=== PATIENT | female | born 1960 | race Hispanic/Latino ===

== ENCOUNTER 2020-08-09 06:31 | Inpatient (IN) | payer BC, SELFPAY ==
--- NOTE | 2020-08-09 07:17 | RAD ---
Exam: Chest one view HISTORY:Cough. Chest pain. Shortness of breath Comparison: None FINDINGS: Cardiac silhouette: Normal Aorta: Unremarkable Pulmonary vessels: Normal Costophrenic angles: Clear LUNGS: Multifocal interstitial and alveolar opacities. Pneumothorax: None Osseous abnormalities: None IMPRESSION: Multifocal interstitial and alveolar opacities. Correlate for multifocal pneumonia, inclu ding COVID pneumonia. Patients COVID status should be determined.
[2020-08-09 07:21] LABS: #Eosinphils 0.1 thou/uL (0.0-0.7); #Lymphocytes 2.3 thou/uL (1.20-3.40); #Monocytes 0.7 thou/uL (0.11-0.59); #Neutrophils 4.9 thou/uL (1.40-6.50); %Basophils 0.4 % (0.0-1.0); %Eosinophils 0.8 % (0.0-10.0); %Lymphocytes 28.8 % (21.0-51.0); %Monocytes 8.6 % (0.0-10.0); %Neutrophils 61.3 % (42.0-75.0); Hemoglobin 15.1 g/dL (12.0-16.0); Mean Corpuscular HGB CONC 31.9 g/dL (32.0-36.0); Mean Corpuscular Hemoglobin 25.9 pg (27.0-31.0); Mean Corpuscular Volume 81.4 fL (78.0-98.0); Mean Platelet Volume 9.5 fL (7.4-10.4); Platelet Count 267 thou/uL (130-400); Red Blood Cell (RBC) Count 5.81 mill/uL (4.20-5.40)
[2020-08-09] MEDS ORDERED: Dexamethasone 4 MG TAB ONE (07:26)
[2020-08-09] MEDS ORDERED: Dexamethasone 10 MG/ML VIAL ONE (07:27)
[2020-08-09 08:52] LABS: SARS-CoV-2 NAA Rapid Test DETECTED (NotDetected)
[2020-08-09 09:57] LABS: Albumin 3.5 g/dL (3.5-5.0)
[2020-08-09 09:58] LABS: Chloride 98 mmol/L (98-107); Sodium 132 mmol/L (136-145)
[2020-08-09 09:59] LABS: Calcium 8.8 mg/dL (7.8-10.44)
[2020-08-09 10:01] LABS: Bilirubin, Total 0.8 mg/dL (0.2-1.2); Carbon Dioxide 23 mmol/L (22-29); Globulin 7.4 g/dL (2.4-3.5); Protein, Total 10.9 g/dL (6.0-8.3)
[2020-08-09 10:02] LABS: Alkaline Phosphatase 91 U/L (40-110); Glucose 257 mg/dL (70-105)
[2020-08-09 10:03] LABS: Calc. Creatinine Clearance 0 mL/min (70-130)
[2020-08-09 10:04] LABS: BUN (Urea Nitrogen) 9 mg/dL (9.8-20.1)
[2020-08-09 10:05] LABS: ALT (SGPT) 52 U/L (8-55); AST (SGOT) 111 U/L (5-34)
[2020-08-09] MEDS ORDERED: Acetaminophen 325 MG TAB PO PRN (10:05)
[2020-08-09] MEDS ORDERED: Senokot S 8.6-50 MG TAB PO PRN (10:05)
[2020-08-09] MEDS ORDERED: Ondansetron ODT 4 MG TAB PO PRN (10:05)
[2020-08-09] MEDS ORDERED: HYDROcodone/Acetaminophen 5/325 mg Tablet PO PRN (10:05)
[2020-08-09] MEDS ORDERED: Melatonin 3 MG TAB PO PRN (10:07)
[2020-08-09] MEDS ORDERED: Promethazine 25 MG TAB PO PRN (10:10)
[2020-08-09 10:11] LABS: Potassium 4.2 mmol/L (3.5-5.1)
[2020-08-09 10:13] LABS: Anion Gap 15 mmol/L (10-20)
[2020-08-09] MEDS ORDERED: Albuterol 200 PUFF (6.7GM INHALER) INH PRN (10:15)
[2020-08-09 11:18] VITALS: BMI 52.9
[2020-08-09] MEDS ORDERED: FLU VACC QS2020-21(6MOS UP)/PF 60 MCG/0.5 ML SYRINGE IM ONE (12:00)
[2020-08-09] MEDS ORDERED: Dextrose 5% in Water 1,000 ML IV PRN (13:44)
[2020-08-09] MEDS ORDERED: Dextrose 50% Abboject 50 ML SYRINGE SLOW IVP PRN (13:44)
[2020-08-09] MEDS: cefTRIAXone\\ROCEPHIN 1 GM in Sodium Chloride 0.9% 100 ML IVPB SCH (14:30)
--- NOTE | 2020-08-09 14:34 | HP ---
CHIEF COMPLAINT: Shortness of breath and productive cough. HISTORY OF PRESENT ILLNESS: A 59-year-old female with significant past medical history, presented with generalized body ache, cough, diarrhea, and subjective fever. Symptoms started a week ago, but also experienced chest pressure last night that required her to come to the ER. One of the family member, her daughter tested positive for COVID two weeks ago. She was saturating mid 80s before arrival with 2 L oxygen. Her sats improved to mid 90s and she is not in any acute distress. She is afebrile. She has white count of 8.0 and COVID positive. Her creatinine is 0.74, blood glucose 257. REVIEW OF SYSTEMS: A 13-point review of systems reviewed with the patient. Pertinent addressed in the history of present illness. Rest are negative including she did not have any headache, blurriness, tingling, numbness in her extremities. She is nauseated, but no emesis. No blood in the urine or stool. No dysuria. No rash in the body. Denies any sensory changes and vision changes. PAST MEDICAL HISTORY: Hypertension. SURGICAL HISTORY: None. SOCIAL HISTORY: The patient lives with the daughter. She does not drink or smoke. No smoking or alcohol use. CURRENT MEDICATIONS: None. ALLERGIES: NONE. PHYSICAL EXAMINATION: VITAL SIGNS: Temperature is 100.4, pulse 118, blood pressure 184/91. GENERAL: She is alert and oriented x3. Nontoxic looking. HEENT: Pupils are equal, round, and reactive to light. Anicteric. Mucous membranes moist. HEART: Tachycardia without murmurs. LUNGS: Clear to auscultation. ABDOMEN: Protuberant, but soft and bowel sounds positive. EXTREMITIES: Without any pitting edema. She is overall obese. IMAGING DATA: Chest x-ray shows some multifocal infiltrate and alveolar opacities. LABORATORY DATA: No elevated white count. Her chemistry 132, creatinine 0.74. AST is 111. Rest of the CMP panel in the normal range. COVID negative. IMPRESSION AND PLAN: This is a 59-year-old obese female with, 1. History of hypertension, presenting with COVID pneumonia. 2. Acute hypoxic respiratory failure. 3. Hypertension. 4. Mild hyponatremia. The patient is admitted for COVID management. Decadron, vitamin C, as well as zinc. Given her temp of 100.4, I will also start her on empiric antibiotics. Lovenox b.i.d. dose. Job ID: [id number]
[2020-08-09] MEDS: Cholecalciferol 1,000 UNITS (25 MCG) TAB PO SCH (20:19)
[2020-08-09] MEDS: Enoxaparin Sodium 40 MG/0.4 ML SYRINGE SC SCH (20:19)
[2020-08-10 06:47] LABS: Hemoglobin 13.6 g/dL (12.0-16.0); Mean Corpuscular HGB CONC 31.4 g/dL (32.0-36.0); Mean Corpuscular Hemoglobin 25.3 pg (27.0-31.0); Mean Corpuscular Volume 80.6 fL (78.0-98.0); Mean Platelet Volume 8.9 fL (7.4-10.4); Platelet Count 290 thou/uL (130-400); RBC Distribution Width 13.7 % (11.5-14.5); Red Blood Cell (RBC) Count 5.35 mill/uL (4.20-5.40); White Blood Cell (WBC) Count 8.9 thou/uL (4.8-10.8)
[2020-08-10 07:01] LABS: ALT (SGPT) 43 U/L (8-55); AST (SGOT) 50 U/L (5-34); Albumin 3.6 g/dL (3.5-5.0); Alkaline Phosphatase 95 U/L (40-110); Anion Gap 18 mmol/L (10-20); BUN (Urea Nitrogen) 10 mg/dL (9.8-20.1); Bilirubin, Total 0.9 mg/dL (0.2-1.2); Calc. Creatinine Clearance 183 mL/min (70-130); Carbon Dioxide 24 mmol/L (22-29); Chloride 100 mmol/L (98-107); Globulin 4.6 g/dL (2.4-3.5); Glucose 194 mg/dL (70-105); Protein, Total 8.2 g/dL (6.0-8.3); Sodium 139 mmol/L (136-145)
[2020-08-10 07:05] LABS: Potassium 2.8 mmol/L (3.5-5.1)
[2020-08-10] MEDS: Dexamethasone 4 MG TAB PO SCH (08:07)
[2020-08-10] MEDS: Potassium Chloride 20 MEQ TAB PO SCH ×3 (08:08→21:26)
[2020-08-10] MEDS ORDERED: Azithromycin 250 MG TAB PO SCH (09:00)
[2020-08-10] MEDS: Enoxaparin Sodium 40 MG/0.4 ML SYRINGE SC SCH ×2 (09:09→21:26)
[2020-08-10] MEDS: Zinc Sulfate 220 MG CAP PO SCH (09:09)
[2020-08-10] MEDS: Ascorbic Acid 500 mg Chewable Tablet PO SCH (09:09)
[2020-08-10 09:33] LABS: Band 2 % (5-11); Lymphocytes 42 % (21-51); MDiff Complete? YES; Monocytes 3 % (0-10); Myelocyte 1 % (0-0); Neutrophil 50 % (42-75); Platelet Morphology Comment Appears Adequate; RBC Morphology Normal; Reactive Lymphocytes 2 % (0-10)
[2020-08-10] MEDS: cefTRIAXone\\ROCEPHIN 1 GM in Sodium Chloride 0.9% 100 ML IVPB SCH (13:15)
--- NOTE | 2020-08-10 15:11 | PDOC.HOSPP ---
- Subjective Encounter Date: 08/10/20 Encounter Time: 09:15 Subjective: no diarrhea now, had it for 2 days got resolved yesterday symptoms started last friday with uri issues then cough, sob from yesterday - Objective Vital Signs & Weight: Vital Signs (12 hours) Temp Pulse Resp BP Pulse Ox 08/10/20 11:53 98.1 F 79 20 132/79 98 08/10/20 07:46 98.3 F 91 20 144/83 H 92 L 08/10/20 04:59 97.8 F 87 18 152/87 H 91 L Weight Weight 280 lb I&O: 08/09/20 08/10/20 08/11/20 06:59 06:59 06:59 Intake Total 1480 Balance 1480 Result Diagrams: 08/10/20 06:31 08/10/20 06:31 Hospitalist ROS - Medication Medications: Active Medications Generic Name Dose Route Start Last Admin Trade Name Freq PRN Reason Stop Dose Admin Ascorbic Acid 1,000 mg 08/10/20 09:00 08/10/20 09:09 Ascorbic Acid 500 Mg Chewable Tablet PO 1,000 mg DAILY RAMILA Administration Azithromycin 500 mg 08/10/20 09:00 08/10/20 09:08 Azithromycin 250 Mg Tab PO 500 mg DAILY RAMILA Administration Cholecalciferol 1,000 units 08/09/20 21:00 08/09/20 20:19 Cholecalciferol 1,000 Units (25 Mcg) Tab PO 1,000 units HS RAMILA Administration Dexamethasone 6 mg 08/10/20 08:00 08/10/20 08:07 Dexamethasone 4 Mg Tab PO 6 mg QAM-WM RAMILA Administration Enoxaparin Sodium 40 mg 08/09/20 21:00 08/10/20 09:09 Enoxaparin Sodium 40 Mg/0.4 Ml Syringe SC 40 mg BID RAMILA Administration Ceftriaxone Sodium 1 gm/ 100 mls @ 200 mls/hr 08/09/20 14:00 08/10/20 13:15 Sodium Chloride IVPB 100 mls 1400 RAMILA Administration Potassium Chloride 40 meq 08/10/20 08:00 08/10/20 13:15 Potassium Chloride 20 Meq Tab PO 08/11/20 02:01 40 meq Q6H RAMILA Administration Zinc Sulfate 220 mg 08/10/20 09:00 08/10/20 09:09 Zinc Sulfate 220 Mg Cap PO 220 mg DAILY RAMILA Administration - Exam General Appearance: awake alert Eye: PERRL, anicteric sclera ENT: no oropharyngeal lesions, moist mucosa Neck: supple, no JVD Heart: RRR, no murmur Respiratory: no wheezes, no rales, rhonchi Gastrointestinal: soft, non-tender, non-distended, normal bowel sounds Extremities: no cyanosis, no edema Neurological: cranial nerve grossly intact, no focal deficits Psychiatric: normal affect, A&O x 3 Hosp A/P (1) Pneumonia due to COVID-19 virus Code(s): U07.1 - COVID-19; J12.82 - PNEUMONIA DUE TO CORONAVIRUS DISEASE 2019 Status: Acute (2) Acute respiratory failure with hypoxia Code(s): J96.01 - ACUTE RESPIRATORY FAILURE WITH HYPOXIA Status: Acute (3) Morbid obesity with BMI of 50.0-59.9, adult Code(s): E66.01 - MORBID (SEVERE) OBESITY DUE TO EXCESS CALORIES; Z68.43 - BODY MASS INDEX [BMI] 50.0-59.9, ADULT Status: Chronic (4) DM type 2 (diabetes mellitus, type 2) Status: Chronic Qualifiers: Diabetes mellitus fpc insulin use: without fpc use (5) Hypokalemia Code(s): E87.6 - HYPOKALEMIA Status: Acute - Plan replace K, bmp at 4 pm and in am d/w , is approved for remdesivir, spoke to Patricia in pharmacy continue dexamethasone, alb, dulera inh, will start lantus for dm to ambulate as tolerated in room is on nasal canula 2 lts hemostable offered to call and update family she prefers not to.
[2020-08-10] MEDS ORDERED: REMDESIVIR (EUA) 200 MG in Sodium Chloride 0.9% 250 ML 210 ML IV SCH (15:45)
[2020-08-10 16:29] LABS: Anion Gap 14 mmol/L (10-20); BUN (Urea Nitrogen) 9 mg/dL (9.8-20.1); Calc. Creatinine Clearance 164 mL/min (70-130); Calcium 9.1 mg/dL (7.8-10.44); Carbon Dioxide 26 mmol/L (22-29); Chloride 98 mmol/L (98-107); Glucose 302 mg/dL (70-105); Potassium 3.9 mmol/L (3.5-5.1); Sodium 134 mmol/L (136-145)
[2020-08-10] MEDS ORDERED: Lisinopril/Hydrochlorothiazide 10 mg/12.5 mg Tablet PO SCH (18:45)
[2020-08-10] MEDS ORDERED: NIFEdipine XL 30 MG TAB PO SCH (18:45)
[2020-08-10] MEDS ORDERED: Insulin Glargine 10 UNITS in Pre-Filled Syringe 1 EACH SC SCH (21:00)
[2020-08-10] MEDS: Cholecalciferol 1,000 UNITS (25 MCG) TAB PO SCH (21:26)
[2020-08-10] MEDS: Insulin Glargine 20 UNITS in Pre-Filled Syringe SC SCH (21:26)
[2020-08-10] MEDS: HumaLOG 300 UNITS/3 ML VIAL SC PRN (21:27)
[2020-08-10] MEDS: hydrALAZINE 20 MG/ML VIAL SLOW IVP PRN (21:46)
[2020-08-11] MEDS: Potassium Chloride 20 MEQ TAB PO SCH (03:00)
[2020-08-11 06:56] LABS: ALT (SGPT) 41 U/L (8-55); AST (SGOT) 34 U/L (5-34); Albumin 3.4 g/dL (3.5-5.0); Alkaline Phosphatase 89 U/L (40-110); Bilirubin, Direct 0.4 mg/dL (0.1-0.3); Bilirubin, Total 0.8 mg/dL (0.2-1.2); Protein, Total 8.2 g/dL (6.0-8.3)
[2020-08-11 06:58] LABS: Anion Gap 20 mmol/L (10-20); Carbon Dioxide 18 mmol/L (22-29); Chloride 105 mmol/L (98-107); Potassium 3.8 mmol/L (3.5-5.1); Sodium 139 mmol/L (136-145)
[2020-08-11 07:06] LABS: BUN (Urea Nitrogen) 10 mg/dL (9.8-20.1); Calc. Creatinine Clearance 201 mL/min (70-130)
[2020-08-11 07:07] LABS: Glucose 154 mg/dL (70-105)
[2020-08-11] MEDS: Albuterol 200 PUFF (6.7GM INHALER) INH SCH ×3 (07:07→17:25)
[2020-08-11] MEDS: Dexamethasone 4 MG TAB PO SCH (08:07)
[2020-08-11] MEDS: Ascorbic Acid 500 mg Chewable Tablet PO SCH (08:07)
[2020-08-11] MEDS: Enoxaparin Sodium 40 MG/0.4 ML SYRINGE SC SCH ×2 (08:08→20:55)
[2020-08-11] MEDS: NIFEdipine XL 60 MG TAB PO SCH (08:09)
[2020-08-11] MEDS: Zinc Sulfate 220 MG CAP PO SCH (08:09)
[2020-08-11] MEDS: Lisinopril/Hydrochlorothiazide 20/25 mg Tablet PO SCH (08:10)
[2020-08-11] MEDS: Insulin Glargine 20 UNITS in Pre-Filled Syringe SC SCH ×2 (08:57→20:55)
[2020-08-11] MEDS: HumaLOG 300 UNITS/3 ML VIAL SC PRN ×2 (13:15→17:25)
--- NOTE | 2020-08-11 15:10 | PDOC.HOSPP ---
- Subjective Encounter Date: 08/11/20 Encounter Time: 09:00 Subjective: is doing well on nasal canula, currently sitting in chair. is amb in room - Objective Vital Signs & Weight: Vital Signs (12 hours) Temp Pulse Resp BP BP Pulse Ox 08/11/20 08:10 79 08/11/20 08:09 79 130/78 08/11/20 07:59 97.9 F 79 20 162/86 H 95 08/11/20 07:06 87 08/11/20 04:56 97.5 F L 87 18 135/73 95 Weight Weight 280 lb I&O: 08/10/20 08/11/20 08/12/20 06:59 06:59 06:59 Intake Total 1480 1930 Balance 1480 1930 Result Diagrams: 08/10/20 06:31 08/11/20 06:03 Additional Labs: Accuchecks 08/11/20 08/11/20 08/10/20 12:03 04:28 19:48 POC Glucose 217 H 139 H 249 H Hospitalist ROS - Medication Medications: Active Medications Generic Name Dose Route Start Last Admin Trade Name Freq PRN Reason Stop Dose Admin Albuterol Sulfate 3 puff 08/10/20 19:00 08/11/20 13:16 Albuterol 200 Puff (6.7gm Inhaler) INH 3 inh [id number] RAMILA Administration Ascorbic Acid 1,000 mg 08/10/20 09:00 08/11/20 08:07 Ascorbic Acid 500 Mg Chewable Tablet PO 1,000 mg DAILY RAMILA Administration Cholecalciferol 1,000 units 08/09/20 21:00 08/10/20 21:26 Cholecalciferol 1,000 Units (25 Mcg) Tab PO 1,000 units HS RAMILA Administration Dexamethasone 6 mg 08/10/20 08:00 08/11/20 08:07 Dexamethasone 4 Mg Tab PO 6 mg QAM-WM RAMILA Administration Enoxaparin Sodium 40 mg 08/09/20 21:00 08/11/20 08:08 Enoxaparin Sodium 40 Mg/0.4 Ml Syringe SC 40 mg BID RAMILA Administration Lisinopril/HCTZ 1 tab 08/11/20 09:00 08/11/20 08:10 Lisinopril/Hydrochlorothiazide 20/25 Mg Tablet PO 1 tab DAILY RAMILA Administration Hydralazine HCl 10 mg 08/10/20 21:29 08/10/20 21:46 Hydralazine 20 Mg/Ml Vial SLOW IVP 10 mg Q4H PRN Administration SBP > 180 or DBP > 105 Insulin Glargine 20 units/ 0.2 mls @ 0 mls/hr 08/10/20 21:00 08/11/20 08:57 Miscellaneous Medication SC 0.2 mls BID RAMILA Administration Insulin Human Lispro 0 units 08/09/20 13:44 08/11/20 13:15 Humalog 300 Units/3 Ml Vial SC 4 unit .MODERATE SLIDING SC PRN Administration Moderate Correctional Scale Nifedipine 60 mg 08/11/20 09:00 08/11/20 08:09 Nifedipine Xl 60 Mg Tab PO 60 mg DAILY RAMILA Administration Pantoprazole Sodium 40 mg 08/11/20 09:00 08/11/20 08:09 Pantoprazole 40 Mg Tab PO 40 mg DAILY RAMILA Administration Zinc Sulfate 220 mg 08/10/20 09:00 08/11/20 08:09 Zinc Sulfate 220 Mg Cap PO 220 mg DAILY RAMILA Administration - Exam General Appearance: awake alert Eye: PERRL, anicteric sclera ENT: no oropharyngeal lesions, moist mucosa Neck: supple, no JVD Heart: RRR, no murmur Respiratory: no wheezes, rales, rhonchi Gastrointestinal: soft, non-tender, non-distended, normal bowel sounds Extremities: no cyanosis, no edema Neurological: cranial nerve grossly intact, no focal deficits Psychiatric: normal affect, A&O x 3 Hosp A/P (1) Pneumonia due to COVID-19 virus Code(s): U07.1 - COVID-19; J12.82 - PNEUMONIA DUE TO CORONAVIRUS DISEASE 2019 Status: Acute (2) Acute respiratory failure with hypoxia Code(s): J96.01 - ACUTE RESPIRATORY FAILURE WITH HYPOXIA Status: Acute (3) Morbid obesity with BMI of 50.0-59.9, adult Code(s): E66.01 - MORBID (SEVERE) OBESITY DUE TO EXCESS CALORIES; Z68.43 - BODY MASS INDEX [BMI] 50.0-59.9, ADULT Status: Chronic (4) DM type 2 (diabetes mellitus, type 2) Status: Chronic Qualifiers: Diabetes mellitus termite exterminator insulin use: without termite exterminator use (5) Hypokalemia Code(s): E87.6 - HYPOKALEMIA Status: Resolved (6) HTN (hypertension) Code(s): I10 - ESSENTIAL (PRIMARY) HYPERTENSION Status: Chronic Qualifiers: Hypertension type: essential hypertension Qualified Code(s): I10 - Ess ential (primary) hypertension - Plan continue dexamethasone, alb, dulera inh, remdesivir, lantus for dm, prinizide and procardia xl for htn was not on any meds for htn and dm previously to ambulate as tolerated in room is on nasal canula 2 lts hemostable offered to call and update family she prefers not to. dc plan when remdesivir course is done and will likely need home O2 2 lts.
--- NOTE | 2020-08-11 16:32 | CON ---
DATE OF CONSULTATION: 08/11/2020 REASON FOR CONSULTATION: COVID-19. HISTORY OF PRESENT ILLNESS: A 59-year-old, looks like first admission to this hospital, with history of obesity and hypertension, who presented to the ER on 08/09, had been 7 days ill on the day of the presentation with respiratory symptoms and hypoxemia, some sore throat, nasal congestion, cough, and some headaches. No abdominal symptoms and no genitourinary symptoms. No joint symptoms or neurological issues. PAST MEDICAL HISTORY: 1. Hypertension. 2. Obesity. SOCIAL HISTORY: Retired. Lives in the area with son, but has been sick at home that she knows of. Never smoker. ALLERGIES: NONE. CURRENT MEDICATIONS: 1. Decadron. 2. Hydralazine. 3. Insulin. 4. Lisinopril. 5. Nifedipine. 6. Remdesivir. 7. Zinc. PHYSICAL EXAMINATION: VITAL SIGNS: Temperature normal, BP 130/78, heart rate 79, flow rate 2 L nasal cannula, saturating at 95. GENERAL: She appears comfortable, sitting, watching television in the chair. She is speaking in full sentences. SKIN: Normal. Peripheral IV access. Voiding in the toilet. No lymphadenopathy. HEENT: Ocular movements conjugate. Oral cavity normal. Teeth in good shape. NECK: Supple. LUNGS: With a few crackles at the bases, but not many. HEART: S1 and S2. Regular rate. No murmurs. ABDOMEN: Soft, not distended or tender. No ascites. No bladder distention. EXTREMITIES: No joint inflammatory activity. Moves extremities equally. No edema. NEUROLOGIC: Examination nonfocal. LABORATORY DATA: White cell count 8.9, hemoglobin 13.6, and platelets 290 with 50% neutrophils, 2% bands, and total lymphocyte count 2.3. D-dimer 0.6. CRP 1.37. SARS-CoV-2 RT PCR positive. Two sets of blood culture, no growth 48 hours. Chest x-ray with bilateral infiltrates, I would say moderate to severe. ASSESSMENT AND DISCUSSION: 1. Obesity. 2. Hypertension. 3. [id number] COVID-19. Continue Decadron and remdesivir. Monitor markers every other day. I think she is going to do well. She did not have a lot of inflammatory activity going on right now, although she is early in the course of illness, so there is still space for worsening, but hopefully the interventions will help prevent that. Job ID: [id number]
[2020-08-11] MEDS: REMDESIVIR (EUA) 100 MG in Sodium Chloride 0.9% 250 ML 230 ML IV SCH (17:25)
[2020-08-11] MEDS: Cholecalciferol 1,000 UNITS (25 MCG) TAB PO SCH (20:55)
[2020-08-11] MEDS: hydrALAZINE 20 MG/ML VIAL SLOW IVP PRN (21:52)
[2020-08-12] MEDS: Albuterol 200 PUFF (6.7GM INHALER) INH SCH ×4 (01:51→21:14)
[2020-08-12 07:29] LABS: ALT (SGPT) 43 U/L (8-55); AST (SGOT) 32 U/L (5-34); Albumin 3.8 g/dL (3.5-5.0); Alkaline Phosphatase 91 U/L (40-110); Bilirubin, Direct 0.4 mg/dL (0.1-0.3); Bilirubin, Total 0.9 mg/dL (0.2-1.2); Protein, Total 8.6 g/dL (6.0-8.3)
[2020-08-12] MEDS: Dexamethasone 4 MG TAB PO SCH (08:39)
[2020-08-12] MEDS: Insulin Glargine 20 UNITS in Pre-Filled Syringe SC SCH ×2 (08:39→21:14)
[2020-08-12] MEDS: Ascorbic Acid 500 mg Chewable Tablet PO SCH (08:39)
[2020-08-12] MEDS: Enoxaparin Sodium 40 MG/0.4 ML SYRINGE SC SCH ×2 (08:39→21:13)
[2020-08-12] MEDS: Zinc Sulfate 220 MG CAP PO SCH (08:39)
[2020-08-12] MEDS: NIFEdipine XL 60 MG TAB PO SCH (08:40)
[2020-08-12] MEDS: Lisinopril/Hydrochlorothiazide 20/25 mg Tablet PO SCH (08:40)
[2020-08-12] MEDS: HumaLOG 300 UNITS/3 ML VIAL SC PRN ×2 (12:30→17:28)
--- NOTE | 2020-08-12 16:23 | PDOC.HOSPP ---
- Subjective Encounter Date: 08/12/20 Encounter Time: 16:21 Subjective: Ms. Villatoro was seen today in follow-up of COVID pneumonia with respiratory failure. She says she is feeling better. She has been in the room without oxygen. She says the cough and diarrhea which she had a few days ago has impr charbel. - Objective Vital Signs & Weight: Vital Signs (12 hours) Temp Pulse Resp BP BP Pulse Ox 08/12/20 08:40 76 144/76 H 08/12/20 08:00 97.7 F 82 20 151/78 H 99 Weight Weight 280 lb I&O: 08/11/20 08/12/20 08/13/20 06:59 06:59 06:59 Intake Total 1929 Balance 1929 Result Diagrams: 08/10/20 06:31 08/11/20 06:03 Additional Labs: Accuchecks 08/12/20 08/11/20 04:50 21:05 POC Glucose 163 H 235 H Hospitalist ROS - Medication Medications: Active Medications Generic Name Dose Route Start Last Admin Trade Name Freq PRN Reason Stop Dose Admin Albuterol Sulfate 3 puff 08/10/20 19:00 08/12/20 14:05 Albuterol 200 Puff (6.7gm Inhaler) INH 3 inh [id number] RAMILA Administration Ascorbic Acid 1,000 mg 08/10/20 09:00 08/12/20 08:39 Ascorbic Acid 500 Mg Chewable Tablet PO 1,000 mg DAILY RAMILA Administration Cholecalciferol 1,000 units 08/09/20 21:00 08/11/20 20:55 Cholecalciferol 1,000 Units (25 Mcg) Tab PO 1,000 units HS RAMILA Administration Dexamethasone 6 mg 08/10/20 08:00 08/12/20 08:39 Dexamethasone 4 Mg Tab PO 6 mg QAM-WM RAMILA Administration Enoxaparin Sodium 40 mg 08/09/20 21:00 08/12/20 08:39 Enoxaparin Sodium 40 Mg/0.4 Ml Syringe SC 40 mg BID RAMILA Administration Lisinopril/HCTZ 1 tab 08/11/20 09:00 08/12/20 08:40 Lisinopril/Hydrochlorothiazide 20/25 Mg Tablet PO 1 tab DAILY RAMILA Administration Hydralazine HCl 10 mg 08/10/20 21:29 08/11/20 21:52 Hydralazine 20 Mg/Ml Vial SLOW IVP 10 mg Q4H PRN Administration SBP > 180 or DBP > 105 Remdesivir 100 mg/ Sodium 250 mls @ 250 mls/hr 08/11/20 16:00 08/11/20 17:25 Chloride IV 08/14/20 16:59 250 mls 1600 RAMILA Administration Insulin Glargine 20 units/ 0.2 mls @ 0 mls/hr 08/10/20 21:00 08/12/20 08:39 Miscellaneous Medication SC 0.2 mls BID RAMILA Administration Insulin Human Lispro 0 units 08/09/20 13:44 08/11/20 17:25 Humalog 300 Units/3 Ml Vial SC 8 unit .MODERATE SLIDING SC PRN Administration Moderate Correctional Scale Nifedipine 60 mg 08/11/20 09:00 08/12/20 08:40 Nifedipine Xl 60 Mg Tab PO 60 mg DAILY RAMILA Administration Pantoprazole Sodium 40 mg 08/11/20 09:00 08/12/20 08:39 Pantoprazole 40 Mg Tab PO 40 mg DAILY RAMILA Administration Zinc Sulfate 220 mg 08/10/20 09:00 08/12/20 08:39 Zinc Sulfate 220 Mg Cap PO 220 mg DAILY RAMILA Administration - Exam General Appearance: NAD, awake alert Eye: PERRL, anicteric sclera ENT: normocephalic atraumatic, no oropharyngeal lesions Heart: RRR, no murmur, no gallops, no rubs, normal peripheral pulses Respiratory: no wheezes, no ronchi, rales (rales and decreased breath sounds) Gastrointestinal: soft, non-tender, non-distended, normal bowel sounds, no palpable masses Extremities: no cyanosis, no clubbing, no edema Hosp A/P (1) Acute respiratory failure with hypoxia Code(s): J96.01 - ACUTE RESPIRATORY FAILURE WITH HYPOXIA Status: Acute (2) Pneumonia due to COVID-19 virus Code(s): U07.1 - COVID-19; J12.82 - PNEUMONIA DUE TO CORONAVIRUS DISEASE 2019 Status: Acute (3) DM type 2 (diabetes mellitus, type 2) Status: Chronic Qualifiers: Diabetes mellitus intermediate teacher insulin use: without fdc use (4) HTN (hypertension) Code(s): I10 - ESSENTIAL (PRIMARY) HYPERTENSION Status: Chronic Qualifiers: Hypertension type: essential hypertension Qualified Code(s): I10 - Essential (primary) hypertension (5) Morbid obesity with BMI of 50.0-59.9, adult Code(s): E66.01 - MORBID (SEVERE) OBESITY DUE TO EXCESS CALORIES; Z68.43 - BODY MASS INDEX [BMI] 50.0-59.9, ADULT Status: Chronic - Plan * Acute respiratory failure due to COVID pneumonia- she is improving * Continue Remdesivir * HTN - blood pressure is borderline- will continue Lisinopril and HCTZ, ad Nifedipine * DM- continue Lantus and SSI * Continue Lovenox for DVT Prophylaxis
[2020-08-12] MEDS: REMDESIVIR (EUA) 100 MG in Sodium Chloride 0.9% 250 ML 230 ML IV SCH (17:27)
[2020-08-12] MEDS: Cholecalciferol 1,000 UNITS (25 MCG) TAB PO SCH (21:13)
[2020-08-13] MEDS: Albuterol 200 PUFF (6.7GM INHALER) INH SCH ×4 (02:28→18:07)
[2020-08-13 06:48] LABS: ALT (SGPT) 42 U/L (8-55); AST (SGOT) 32 U/L (5-34); Albumin 3.5 g/dL (3.5-5.0); Alkaline Phosphatase 85 U/L (40-110); Bilirubin, Direct 0.4 mg/dL (0.1-0.3); Bilirubin, Total 0.8 mg/dL (0.2-1.2); Protein, Total 7.9 g/dL (6.0-8.3)
[2020-08-13] MEDS: Insulin Glargine 20 UNITS in Pre-Filled Syringe SC SCH ×2 (08:13→20:50)
[2020-08-13] MEDS: Dexamethasone 4 MG TAB PO SCH (08:13)
[2020-08-13] MEDS: Ascorbic Acid 500 mg Chewable Tablet PO SCH (08:13)
[2020-08-13] MEDS: NIFEdipine XL 60 MG TAB PO SCH (08:13)
[2020-08-13] MEDS: Lisinopril/Hydrochlorothiazide 20/25 mg Tablet PO SCH (08:13)
[2020-08-13] MEDS: Zinc Sulfate 220 MG CAP PO SCH (08:13)
[2020-08-13] MEDS: Enoxaparin Sodium 40 MG/0.4 ML SYRINGE SC SCH ×2 (08:26→20:50)
--- NOTE | 2020-08-13 14:45 | PDOC.HOSPP ---
- Subjective Encounter Date: 08/13/20 Encounter Time: 14:43 Subjective: Ms. Villatoro was seen today in follow-up of COVID pneumonia. She does not have any complaints. She is breathing comfortably without oxygen. She denies any chest pain no diarrhea. - Objective Vital Signs & Weight: Vital Signs (12 hours) Temp Pulse Resp BP Pulse Ox 08/13/20 08:13 89 08/13/20 08:00 98.4 F 87 20 145/74 H 95 Weight Weight 280 lb Result Diagrams: 08/10/20 06:31 08/11/20 06:03 Additional Labs: Accuchecks 08/13/20 08/13/20 08/12/20 11:44 03:55 20:56 POC Glucose 181 H 172 H 260 H 08/12/20 16:27 POC Glucose 309 H Hospitalist ROS - Medication Medications: Active Medications Generic Name Dose Route Start Last Admin Trade Name Freq PRN Reason Stop Dose Admin Albuterol Sulfate 3 puff 08/10/20 19:00 08/13/20 06:12 Albuterol 200 Puff (6.7gm Inhaler) INH Not Given [id number] RAMILA Ascorbic Acid 1,000 mg 08/10/20 09:00 08/13/20 08:13 Ascorbic Acid 500 Mg Chewable Tablet PO 1,000 mg DAILY RAMILA Administration Cholecalciferol 1,000 units 08/09/20 21:00 08/12/20 21:13 Cholecalciferol 1,000 Units (25 Mcg) Tab PO 1,000 units HS RAMILA Administration Dexamethasone 6 mg 08/10/20 08:00 08/13/20 08:13 Dexamethasone 4 Mg Tab PO 6 mg QAM-WM RAMILA Administration Enoxaparin Sodium 40 mg 08/09/20 21:00 08/13/20 08:26 Enoxaparin Sodium 40 Mg/0.4 Ml Syringe SC 40 mg BID RAMILA Administration Lisinopril/HCTZ 1 tab 08/11/20 09:00 08/13/20 08:13 Lisinopril/Hydrochlorothiazide 20/25 Mg Tablet PO 1 tab DAILY RAMILA Administration Hydralazine HCl 10 mg 08/10/20 21:29 08/11/20 21:52 Hydralazine 20 Mg/Ml Vial SLOW IVP 10 mg Q4H PRN Administration SBP > 180 or DBP > 105 Remdesivir 100 mg/ Sodium 250 mls @ 250 mls/hr 08/11/20 16:00 08/12/20 17:27 Chloride IV 08/14/20 16:59 250 mls 1600 RAMILA Administration Insulin Glargine 20 units/ 0.2 mls @ 0 mls/hr 08/10/20 21:00 08/13/20 08:13 Miscellaneous Medication SC 0.2 mls BID RAMILA Administration Insulin Human Lispro 0 units 08/09/20 13:44 08/12/20 17:28 Humalog 300 Units/3 Ml Vial SC 8 unit .MODERATE SLIDING SC PRN Administration Moderate Correctional Scale Nifedipine 60 mg 08/11/20 09:00 08/13/20 08:13 Nifedipine Xl 60 Mg Tab PO 60 mg DAILY RAMILA Administration Pantoprazole Sodium 40 mg 08/11/20 09:00 08/13/20 08:13 Pantoprazole 40 Mg Tab PO 40 mg DAILY RAMILA Administration Zinc Sulfate 220 mg 08/10/20 09:00 08/13/20 08:13 Zinc Sulfate 220 Mg Cap PO 220 mg DAILY RAMILA Administration - Exam Eye: PERRL, anicteric sclera Heart: RRR, no murmur, no gallops, no rubs, normal peripheral pulses Respiratory: no wheezes, no ronchi, rales (at both bases) Gastrointestinal: soft, non-tender, non-distended, normal bowel sounds, no palpable masses, no hepatomegaly, no splenomegaly Extremities: no cyanosis (good d.p. pulses no lesions), no edema Hosp A/P (1) Acute respiratory failure with hypoxia Code(s): J96.01 - ACUTE RESPIRATORY FAILURE WITH HYPOXIA Status: Acute (2) Pneumonia due to COVID-19 virus Code(s): U07.1 - COVID-19; J12.82 - PNEUMONIA DUE TO CORONAVIRUS DISEASE 2019 Status: Acute (3) DM type 2 (diabetes mellitus, type 2) Status: Chronic Qualifiers: Diabetes mellitus emt intermediate insulin use: without care home use (4) HTN (hypertension) Code(s): I10 - ESSENTIAL (PRIMARY) HYPERTENSION Status: Chronic Qualifiers: Hypertension type: essential hypertension Qualified Code(s): I10 - Essential (primary) hypertension (5) Morbid obesity with BMI of 50.0-59.9, adult Code(s): E66.01 - MORBID (SEVERE) OBESITY DUE TO EXCESS CALORIES; Z68.43 - BODY MASS INDEX [BMI] 50.0-59.9, ADULT Status: Chronic - Plan * Acute respiratory failure due to COVID pneumonia- she is improving * Her final dose of Remdesivir is tomorrow * HTN - blood pressure is better * DM- continue Lantus and SSI * Continue Lovenox for DVT Prophylaxis * Home after final dose of Remdesivir
[2020-08-13] MEDS: HumaLOG 300 UNITS/3 ML VIAL SC PRN (18:07)
[2020-08-13] MEDS: REMDESIVIR (EUA) 100 MG in Sodium Chloride 0.9% 250 ML 230 ML IV SCH (18:17)
[2020-08-13] MEDS: Cholecalciferol 1,000 UNITS (25 MCG) TAB PO SCH (20:50)
[2020-08-14] MEDS: Albuterol 200 PUFF (6.7GM INHALER) INH SCH ×3 (01:48→11:40)
[2020-08-14 06:48] LABS: ALT (SGPT) 42 U/L (8-55); AST (SGOT) 33 U/L (5-34); Albumin 3.5 g/dL (3.5-5.0); Alkaline Phosphatase 83 U/L (40-110); Bilirubin, Direct 0.4 mg/dL (0.1-0.3); Bilirubin, Total 0.9 mg/dL (0.2-1.2); Protein, Total 7.8 g/dL (6.0-8.3)
[2020-08-14] MEDS: Enoxaparin Sodium 40 MG/0.4 ML SYRINGE SC SCH (07:50)
[2020-08-14] MEDS: NIFEdipine XL 60 MG TAB PO SCH (07:50)
[2020-08-14] MEDS: Lisinopril/Hydrochlorothiazide 20/25 mg Tablet PO SCH (07:51)
[2020-08-14] MEDS: Ascorbic Acid 500 mg Chewable Tablet PO SCH (07:51)
[2020-08-14] MEDS: Dexamethasone 4 MG TAB PO SCH (07:51)
[2020-08-14] MEDS: Zinc Sulfate 220 MG CAP PO SCH (09:50)
[2020-08-14] MEDS: Insulin Glargine 20 UNITS in Pre-Filled Syringe SC SCH (10:01)
[2020-08-14] MEDS: HumaLOG 300 UNITS/3 ML VIAL SC PRN ×2 (11:40→16:27)
[2020-08-14] MEDS: REMDESIVIR (EUA) 100 MG in Sodium Chloride 0.9% 250 ML 230 ML IV SCH (14:24)
[2020-08-14 16:40] VITALS: TEMP 98.4
--- NOTE | 2020-08-14 17:19 | PDOC.HOSPP ---
- Subjective Encounter Date: 08/14/20 Encounter Time: 17:17 Subjective: Ms. Villatoro was seen today in follow-up of COVID pneumonia. She is feeling fine. She has not required any oxygen for several days now. - Objective Vital Signs & Weight: Vital Signs (12 hours) Temp Pulse Resp BP BP Pulse Ox 08/14/20 16:00 98.4 F 64 20 166/83 H 96 08/14/20 12:07 98.1 F 64 20 174/78 H 99 08/14/20 08:05 63 18 98 08/14/20 08:00 98.0 F 60 20 172/84 H 100 Weight Weight 280 lb Result Diagrams: 08/10/20 06:31 08/11/20 06:03 Additional Labs: Accuchecks 08/14/20 08/14/20 08/13/20 16:11 11:35 20:40 POC Glucose 260 H 183 H 188 H 08/12/20 08/11/20 11:20 15:45 POC Glucose 201 H 316 H Hospitalist ROS - Medication Medications: Active Medications Generic Name Dose Route Start Last Admin Trade Name Freq PRN Reason Stop Dose Admin Albuterol Sulfate 3 puff 08/10/20 19:00 08/14/20 11:40 Albuterol 200 Puff (6.7gm Inhaler) INH 3 inh [id number] RAMILA Administration Ascorbic Acid 1,000 mg 08/10/20 09:00 08/14/20 07:51 Ascorbic Acid 500 Mg Chewable Tablet PO 1,000 mg DAILY RAMILA Administration Cholecalciferol 1,000 units 08/09/20 21:00 08/13/20 20:50 Cholecalciferol 1,000 Units (25 Mcg) Tab PO 1,000 units HS RAMILA Administration Dexamethasone 6 mg 08/10/20 08:00 08/14/20 07:51 Dexamethasone 4 Mg Tab PO 6 mg QAM-WM RAMILA Administration Enoxaparin Sodium 40 mg 08/09/20 21:00 08/14/20 07:50 Enoxaparin Sodium 40 Mg/0.4 Ml Syringe SC 40 mg BID RAMILA Administration Lisinopril/HCTZ 1 tab 08/11/20 09:00 08/14/20 07:51 Lisinopril/Hydrochlorothiazide 20/25 Mg Tablet PO 1 tab DAILY RAMILA Administration Hydralazine HCl 10 mg 08/10/20 21:29 08/11/20 21:52 Hydralazine 20 Mg/Ml Vial SLOW IVP 10 mg Q4H PRN Administration SBP > 180 or DBP > 105 Insulin Glargine 20 units/ 0.2 mls @ 0 mls/hr 08/10/20 21:00 08/14/20 10:01 Miscellaneous Medication SC 0.2 mls BID RAMILA Administration Insulin Human Lispro 0 units 08/09/20 13:44 08/14/20 16:27 Humalog 300 Units/3 Ml Vial SC 6 unit .MODERATE SLIDING SC PRN Administration Moderate Correctional Scale Nifedipine 60 mg 08/11/20 09:00 08/14/20 07:50 Nifedipine Xl 60 Mg Tab PO 60 mg DAILY RAMILA Administration Pantoprazole Sodium 40 mg 08/11/20 09:00 08/14/20 07:51 Pantoprazole 40 Mg Tab PO 40 mg DAILY RAMILA Administration Zinc Sulfate 220 mg 08/10/20 09:00 08/14/20 09:50 Zinc Sulfate 220 Mg Cap PO Not Given DAILY RAMILA - Exam Eye: PERRL Heart: RRR, no murmur, no gallops, no rubs, normal peripheral pulses Respiratory: no wheezes, no ronchi, rales (at both bases) Gastrointestinal: soft, non-tender, non-distended, normal bowel sounds, no palpable masses, no hepatomegaly Extremities: no cyanosis, no edema (good distal pulses bilaterally) Hosp A/P (1) Acute respiratory failure with hypoxia Code(s): J96.01 - ACUTE RESPIRATORY FAILURE WITH HYPOXIA Status: Acute (2) Pneumonia due to COVID-19 virus Code(s): U07.1 - COVID-19; J12.82 - PNEUMONIA DUE TO CORONAVIRUS DISEASE 2019 Status: Acute (3) DM type 2 (diabetes mellitus, type 2) Status: Chronic Qualifiers: Diabetes mellitus exterminator insulin use: without skilled nursing use (4) HTN (hypertension) Code(s): I10 - ESSENTIAL (PRIMARY) HYPERTENSION Status: Chronic Qualifiers: Hypertension type: essential hypertension Qualified Code(s): I10 - Essentia l (primary) hypertension (5) Morbid obesity with BMI of 50.0-59.9, adult Code(s): E66.01 - MORBID (SEVERE) OBESITY DUE TO EXCESS CALORIES; Z68.43 - BODY MASS INDEX [BMI] 50.0-59.9, ADULT Status: Chronic - Plan * Acute respiratory failure due to COVID pneumonia- she is improving * Home today after her final dose of Remdesivir
--- NOTE | 2020-08-14 17:59 | PDOC.DS.DS ---
Provider - Provider Date of Admission: 08/09/20 09:35 Date of Discharge: 08/14/20 Admitting Provider: Terrance Liz MD Consultations: Infectious Disease Primary Care Physician: KIM PCP PROVIDER Course - Hospital Course Hospital Course: Ms. Ocampo is a pleasant 59-year-old female that has a history of hypertension. She was recently diagnosed with Covid pneumonia and came to the emergency room after her oxygen saturations had dropped into the mid 80s. She was still within the window to receive remdesivir and as a result this was administered. While she was in the hospital she improved to the point where she did not require any additional supplemental oxygen. She was also found to have an elevated blood pressure and was started on lisinopril. Also with regards to. Once she finished her final dose of remdesivir she was able to be discharged home and again she was not requiring any supplemental oxygen. - Labs Lab Results: 08/10/20 06:31 08/11/20 06:03 Abnormal Lab Results - Last 48 hrs 08/13/20 06:10: Direct Bilirubin 0.4 H 08/13/20 06:10: Ferritin 545.49 H 08/13/20 06:10: D-Dimer 0.45 H 08/14/20 05:47: Direct Bilirubin 0.4 H Microbiology - Entire Visit 08/09/20 07:36 Venous blood - Right Arm Blood Culture - Final NO GROWTH IN 5 DAYS 08/09/20 07:36 Venous blood - Left Arm Blood Culture - Final NO GROWTH IN 5 DAYS - Physical Exam Vitals: Vital Signs (12 hours) Temp Pulse Resp BP BP Pulse Ox 08/14/20 16:00 98.4 F 64 20 166/83 H 96 08/14/20 12:07 98.1 F 64 20 174/78 H 99 08/14/20 08:05 63 18 98 08/14/20 08:00 98.0 F 60 20 172/84 H 100 Weight Weight 280 lb Physical Exam: The patient was seen and examined on the day of discharge. Problem - Problem (1) Acute respiratory failure with hypoxia Code(s): J96.01 - ACUTE RESPIRATORY FAILURE WITH HYPOXIA Status: Acute (2) Pneumonia due to COVID-19 virus Code(s): U07.1 - COVID-19; J12.82 - PNEUMONIA DUE TO CORONAVIRUS DISEASE 2019 Status: Acute (3) DM type 2 (diabetes mellitus, type 2) Status: Chronic Qualifiers: Diabetes mellitus extermination inspector insulin use: without correction use (4) HTN (hypertension) Code(s): I10 - ESSENTIAL (PRIMARY) HYPERTENSION Status: Chronic Qualifiers: Hypertension type: essential hypertension Qualified Code(s): I10 - Essential (primary) hypertension (5) Morbid obesity with BMI of 50.0-59.9, adult Code(s): E66.01 - MORBID (SEVERE) OBESITY DUE TO EXCESS CALORIES; Z68.43 - BODY MASS INDEX [BMI] 50.0-59.9, ADULT Status: Chronic Plan - Discharge Medications Prescriptions: Dexamethasone [Decadron] 6 mg PO QAM-WM #6 tab Lisinopril/Hydrochlorothiazide [Prinizide] 1 tab PO DAILY #30 tab NIFEdipine [Procardia XL] 60 mg PO DAILY #30 tab Home Medications: Medication Instructions Recorded Confirmed Type No Known 08/09/20 08/09/20 History Albuterol Sulfate [Proventil Hfa] 3 puff INH J3DS-SD aer 08/14/20 Rx Ascorbic Acid [Vitamin C] 1,000 mg PO DAILY tab 08/14/20 Rx Dexamethasone [Decadron] 6 mg PO QAM-WM #6 tab 08/14/20 Rx Lisinopril/Hydrochlorothiazide 1 tab PO DAILY #30 tab 08/14/20 Rx [Prinizide] NIFEdipine [Procardia XL] 60 mg PO DAILY #30 tab 08/14/20 Rx Zinc Sulfate 220 mg PO DAILY cap 08/14/20 Rx Allergies: No Known Allergies Allergy (Verified 08/09/20 11:32) - Discharge Instructions Discharge Instructions:: Follow-up with your Primary Care Provider in 2-3 weeks YOUR PRESCRIPTIONS WERE SENT TO: [facility] [address] [place] [address] Activity:: Activity as Tolerated Nourishment:: Heart Healthy Diet - Follow up Plan Referrals: John Gomes MD [Active] - PROVIDER,NO PCP [Primary Care Provider] - Disposition: HOME Quality - Care Measures CORE MEASURES:: N/A
[2020-08-14 18:33] VITALS: BP 147/83
== END 2020-08-14 18:19 | disposition home or self-care (01) | DRG 177 ==
LOC: ERS 06:31 → T4-A 09:35
PROVIDERS: ADMIT Internal Medicine; ATTEND Internal Medicine
PROC: 8E0ZXY6 Isolation (ICD-10-PCS; principal; 2020-08-09)
PROC: XW033E5 Introduction of Remdesivir Anti-infective into Peripheral Vein, Percutaneous Approach, New Technology Group 5 (ICD-10-PCS; 2020-08-10)
DX: U07.1 COVID-19 (principal); J96.01 Acute respiratory failure with hypoxia; J12.82 Pneumonia due to coronavirus disease 2019; Z68.43 Body mass index [BMI] 50.0-59.9, adult; E87.1 Hypo-osmolality and hyponatremia; E66.01 Morbid (severe) obesity due to excess calories; E11.9 Type 2 diabetes mellitus without complications; I10 Essential (primary) hypertension; E87.6 Hypokalemia
CPT/HCPCS: 0240U; 36415; 36416; 71045; 80048; 80053; 80076; 82728; 83605; 84484; 85007; 85025; 85027; 85379; 86140; 87040; 93005; 96374; J0360; J0696; J1100; J1650; J1815; J3490; J7050; J8540